=== PATIENT | female | born 1990 | race Two or more races ===

== ENCOUNTER 2025-03-24 14:53 | Emergency (ER) | payer BC, MEDICAID, OTHER ==
[~2025-03-24] VITALS: Ht 167.6 cm; Wt 68.0 kg
[2025-03-24 15:01] VITALS: BP 120/68; TEMP 98.6
[2025-03-24] MEDS ORDERED: GUAIFENESIN/D-METHORPHAN HB 5 ML UDC ONE (16:40)
[2025-03-24] MEDS ORDERED: ACETAMINOPHEN ES 500 MG TABLET ONE (16:41)
[2025-03-24] MEDS ORDERED: IBUPROFEN 600 MG TABLET ONE (16:41)
[2025-03-24] MEDS: IBUPROFEN 600 MG TABLET PO ONE (16:44)
[2025-03-24] MEDS: ACETAMINOPHEN ES 500 MG TABLET PO ONE (16:44)
[2025-03-24] MEDS: GUAIFENESIN/D-METHORPHAN HB 5 ML UDC PO ONE (16:44)
[2025-03-24] MEDS ORDERED: IBUP-1490 PO (16:49)
[2025-03-24] MEDS ORDERED: ACET-2030 PO (16:49)
[2025-03-24] MEDS ORDERED: GUAI-1105 PO (16:49)
[2025-03-24 17:42] VITALS: O2SAT 99
== END 2025-03-24 17:43 | disposition home or self-care (01) ==
LOC: ER 16:06
DX: B34.9 Viral infection, unspecified (principal); J02.9 Acute pharyngitis, unspecified
CPT/HCPCS: 71045-TC